=== PATIENT | male | born 1995 | race Caucasian/White ===

== ENCOUNTER 2019-04-08 14:44 | Emergency (ER) | payer MEDICAID ==
[~2019-04-08] VITALS: Ht 167.6 cm; Wt 59.0 kg
[2019-04-08 14:48] VITALS: BP 133/78; PULSE 76; RESP 18; Ht 167.6 cm; Wt 59.0 kg
[2019-04-08] MEDS ORDERED: ACET-141 PO (15:57)
[2019-04-08] MEDS ORDERED: IBUP-1561 PO (15:57)
--- NOTE | 2019-04-08 17:51 | ERD ---
ER Documentation Chief Complaint Chief Complaint LEFT KNEE PAIN X 3 DAYS S/P FALL WHILE PLAYING SOCCER. CMS INTACT. HPI 23-year-old male with history of left knee injury presents for left knee pain x3 days. States there is playing soccer twisted his left knee while playing. He states that he currently has 10 out of 10 pain. The pain is worse with walking. Pain is described as a dull sensation. There is no radiation of the pain. Denies any chest pain shortness of breath. Denies any abdominal pain, nausea, vomiting. No other modifying factors noted, no treatments at home. ROS All systems reviewed and are negative except as per history of present illness. Medications Home Meds Active Scripts Ibuprofen* (Motrin*) 400 Mg Tab, 400 MG PO Q6H PRN for PAIN AND OR ELEVATED TEMP, #30 TAB Prov:RUDOLPH HYMAN DO 04/08/19 Acetaminophen* (Acetaminophen*) 500 MG Extra Strength Tablet, 500 MG PO Q4H PRN for PAIN AND OR ELEVATED TEMP, #30 TAB Prov:RUDOLPH HYMAN DO 04/08/19 PMhx/Soc Medical and Surgical Hx: pt denies Medical Hx, pt denies Surgical Hx Hx Alcohol Use: No Hx Substance Use: No Hx Tobacco Use: No FmHx Family History: coronary disease Physical Exam Vitals Vital Signs Date Temp Pulse Resp B/P (MAP) Pulse Ox O2 O2 Flow FiO2 Time Delivery Rate 04/08/19 98.3 76 18 133/78 98 14:48 (96) Physical Exam Const: No acute distress Resp: Clear to auscultation bilaterally Cardio: Regular rate and rhythm, no murmurs Skin: No petechiae or rashes Back: No midline or flank tenderness Neur: Awake and alert Psych: Normal Mood and Affect Lower Extremity -left: Skin: No laceration Compartments: Soft Motor: Full active range of motion hip/ankle/foot, decreased range of motion of the left knee Sensation: Intact to light touch FDWS/MF/LF/P surfaces. Bones: Nontender pelvis/proximal tibia/ malleoli/foot, diffuse tenderness palpation of the left knee Joints: Mild effusion noted over the entire left knee Pulses/Perfusion: 2+ DP, Capillary refill < 2 seconds Procedures/MDM Medical Decision Making: Differential diagnosis includes but not limited to fracture, dislocation, muscle strain, ligamentous sprain, septic joint, osteomyelitis, gout, Patient appeared well on physical exam. There was tenderness over the left knee Patient was neurovascularly intact Patient denies fever, no recent infection, low suspicion for septic joint or osteomyelitis. ED course: X-ray left knee 3V Interpreted by me: Bones: No fracture Joints: No dislocation Foreign body: None There were some signs of old knee injury noted Patient likely has a knee sprain Prescription(s): Patient given prescription for supportive medication(s). Patient advised to follow up with PCP in 1-2 days. Patient advised to return to ED for new or worsening symptoms. Patient stable on discharge from the ED. Disclaimer: Inadvertent spelling and grammatical errors are likely due to EHR/dictation software use and do not reflect on the overall quality of patient care. Also, please note that the electronic time recorded on this note does not necessarily reflect the actual time of the patient encounter. Departure Diagnosis: Primary Impression: Knee injury Encounter type: initial encounter Laterality: left Qualified Codes: S89.92XA - Unspecified injury of left lower leg, initial encounter Condition: Fair Patient Instructions: Knee Sprain Referrals: [facility] YOU HAVE RECEIVED A MEDICAL SCREENING EXAM AND THE RESULTS INDICATE THAT YOU DO NOT HAVE A CONDITION THAT REQUIRES URGENT TREATMENT IN THE EMERGENCY DEPARTMENT. FURTHER EVALUATION AND TREATMENT OF YOUR CONDITION CAN WAIT UNTIL YOU ARE SEEN IN YOUR DOCTORS OFFICE WITHIN THE NEXT 1-2 DAYS. IT IS YOUR RESPONSIBILITY TO MAKE AN APPOINTMENT FOR FOLOW-UP CARE. IF YOU HAVE A PRIMARY DOCTOR --you should call your primary doctor and schedule an appointment IF YOU DO NOT HAVE A PRIMARY DOCTOR YOU CAN CALL OUR PHYSICIAN REFERRAL HOTLINE AT IF YOU CAN NOT AFFORD TO SEE A PHYSICIAN YOU CAN CHOSE FROM THE FOLLOWING [facility] [address] [facility]. [facility] [address] [facility] [facility] [address] [facility]. [facility] [address] [facility] [address] [facility]. [facility]. [address] Additional Instructions: Llame al doctor MAANA y dona bri FEI PARA DENTRO DE 1-2 ROMAN.Dgale a la secretaria que nosotros le instruimos hacer esta fei.Avise o llame si moore condicin se empeora antes de la fei. Regresa aqui si peor o no mejor. RUDOLPH HYMAN DO Apr 08, 2019 17:51
== END 2019-04-08 16:01 | disposition home or self-care (01) ==
LOC: E/R 14:44
DX: S89.92XA Unspecified injury of left lower leg, initial encounter (principal); X50.1XXA Overexertion from prolonged static or awkward postures, initial encounter; Y92.322 Soccer field as the place of occurrence of the external cause
CPT/HCPCS: 73562; Z7502